=== PATIENT | female | born 1955 | race Caucasian/White ===

== ENCOUNTER 2016-10-19 07:06 | Inpatient (IN) | payer OTHER ==
[2016-10-19 08:01] LABS: BASOPHIL 0.3 % (0-2); EOSINOPHIL 4.1 % (0-5); HCT 37.8 % (37.0-47.0); HGB 12.3 g/dl (12.5-16.0); LYMPHOCYTE 19.3 % (15-48); MCH 29.6 pg (25.0-31.0); MCHC 32.5 g/dL (32.0-36.0); MCV 90.9 fL (78.0-100.0); MPV 10.4 fL (6.0-9.5); NEUTROPHIL 67.3 % (41-80); PLT 206 K/uL (150-400); RBC 4.16 M/uL (4.20-5.40); RDW 16.3 % (11.5-14.0); WBC 6.4 K/uL (4.0-10.5)
[2016-10-19 08:19] LABS: ALBUMIN 3.3 g/dL (3.4-4.8); BILIRUBIN - TOTAL 0.4 mg/dL (0.1-1.0); CREATININE 0.6 mg/dL (0.5-1.0); GLOBULIN (CALCULATION) 3.9 g/dL (2.2-4.2); POTASSIUM 2.9 mmol/L (3.5-5.1); TOTAL PROTEIN 7.2 g/dL (6.4-8.3); TROPONIN T < 0.010 ng/mL
[2016-10-19 08:24] LABS: PRO-BNP 283 pg/mL (0-125)
[2016-10-19 08:52] LABS: BILIRUBIN NEGATIVE (NEGATIVE); BLOOD TRACE-INTACT Ery/uL (NEGATIVE); COLOR YELLOW (YELLOW); GLUCOSE (U) NORMAL (NORMAL); KETONE (U) NEGATIVE (NEGATIVE); LEUKOCYTES TRACE Leu/uL (NEGATIVE); NITRITE NEGATIVE (NEGATIVE); PROTEIN NEGATIVE (NEGATIVE); UROBILINOGEN 0.2 mg/dL (0.2-1.0); pH 7.5 (5.0-9.0)
[2016-10-19 08:56] LABS: CLARITY SLIGHTLY HAZY (CLEAR)
[2016-10-19 09:03] LABS: BACTERIA 1+
[2016-10-19 09:52] LABS: INR 1.97 (0.9-1.2); PROTHROMBIN TIME 21.8 SECONDS (11.7-14.0)
[2016-10-19 17:03] LABS: CREATININE 0.6 mg/dL (0.5-1.0); POTASSIUM 3.3 mmol/L (3.5-5.1)
[2016-10-19 17:05] LABS: CKMB 1.31 ng/mL (0.97-4.94); TROPONIN T < 0.010 ng/mL
[2016-10-20 03:59] LABS: BASOPHIL 0.4 % (0-2); EOSINOPHIL 0 % (0-5); HGB 12.3 g/dl (12.5-16.0); LYMPHOCYTE 13.9 % (15-48); MCH 29.2 pg (25.0-31.0); MCHC 32.4 g/dL (32.0-36.0); MCV 90.3 fL (78.0-100.0); MONOCYTE 3.6 % (0-12); MPV 10.3 fL (6.0-9.5); NEUTROPHIL 82.1 % (41-80); PLT 227 K/uL (150-400); RBC 4.21 M/uL (4.20-5.40); RDW 15.7 % (11.5-14.0); WBC 5.6 K/uL (4.0-10.5)
[2016-10-20 04:17] LABS: CREATININE 0.6 mg/dL (0.5-1.0); MAGNESIUM 2.06 mg/dL (1.40-2.10); POTASSIUM 4.4 mmol/L (3.5-5.1)
[2016-10-20 04:20] LABS: TROPONIN T < 0.010 ng/mL
[2016-10-20 04:21] LABS: PRO-BNP 647 pg/mL (0-125)
[2016-10-21 04:27] LABS: BASOPHIL 0.2 % (0-2); EOSINOPHIL 0 % (0-5); HCT 37.8 % (37.0-47.0); HGB 12.2 g/dl (12.5-16.0); LYMPHOCYTE 7.8 % (15-48); MCH 29.3 pg (25.0-31.0); MCHC 32.3 g/dL (32.0-36.0); MCV 90.6 fL (78.0-100.0); MONOCYTE 4.5 % (0-12); MPV 10.6 fL (6.0-9.5); NEUTROPHIL 87.5 % (41-80); PLT 225 K/uL (150-400); RBC 4.17 M/uL (4.20-5.40); RDW 15.9 % (11.5-14.0)
[2016-10-21 04:28] LABS: WBC 15.9 K/uL (4.0-10.5)
[2016-10-21 04:44] LABS: CREATININE 0.7 mg/dL (0.5-1.0); POTASSIUM 4.3 mmol/L (3.5-5.1); TROPONIN T < 0.010 ng/mL
[2016-10-21 04:54] LABS: PRO-BNP 486 pg/mL (0-125)
[2016-10-21 08:37] LABS: INR 4.63 (0.9-1.2); PROTHROMBIN TIME 42.8 SECONDS (11.7-14.0)
== END 2016-10-21 16:23 | disposition other institution (70) | DRG 291 ==
LOC: FER 07:06 → FICU 10:55 → FTCU 10:55 → FICU 15:39
PROVIDERS: Emergency Medicine; Internal Medicine Cardiovascular Disease; ADMIT Internal Medicine
PROC: 02HV33Z Insertion of Infusion Device into Superior Vena Cava, Percutaneous Approach (ICD-10-PCS; principal; 2016-10-19)
DX: I50.33 Acute on chronic diastolic (congestive) heart failure (principal); J96.21 Acute and chronic respiratory failure with hypoxia; M32.9 Systemic lupus erythematosus, unspecified; Z68.43 Body mass index [BMI] 50.0-59.9, adult; J45.901 Unspecified asthma with (acute) exacerbation; E66.01 Morbid (severe) obesity due to excess calories; J96.22 Acute and chronic respiratory failure with hypercapnia; J44.9 Chronic obstructive pulmonary disease, unspecified; I48.2 Chronic atrial fibrillation; J20.9 Acute bronchitis, unspecified; Z79.01 Long term (current) use of anticoagulants; I25.2 Old myocardial infarction; M48.02 Spinal stenosis, cervical region; Z87.891 Personal history of nicotine dependence; E87.6 Hypokalemia
CPT/HCPCS: 36415; 36600; 71010; 80048; 80053; 80162; 81001; 82550; 82553; 82803; 83605; 83735; 83880; 84145; 84484; 85025; 85610; 86403; 87040; 87070; 87076; 87077; 87088; 87186; 87205; 93005; 94640; 94660; C1751; J0456; J1160; J1450; J1940; J2405; J2930